=== PATIENT | female | born 1935 | race Caucasian/White ===

== ENCOUNTER → 2024-07-08 | Outpatient (CLI) | payer MEDICARE, BC ==
[2024-07-08 14:13] LABS: Partial Thromboplastin Time 23.6 sec (22.0-30.0); Prothrombin Time 10.7 sec (10.0-12.5)
[2024-07-08 19:29] LABS: HCT 38.7 % (37.2-46.3); HGB 12.2 g/dL (12.0-15.0); MCH 30.5 pg (27.0-32.0); MCHC 31.5 g/dL (32.0-37.0); MCV 96.8 FL (80.0-97.0); Mean Platelet Volume 11.1 FL (9.5-12.2); NRBC Per 100 WBC 0 X 10*3/uL (0.00-0.01); Platelet Count 235 X 10*3/uL (140-440); RDW 14.6 % (11.5-14.5); WBC 10.76 X 10*3/uL (4.50-10.00)
[2024-07-08 21:07] LABS: ALT 29 U/L (8-44); AST 33 U/L (13-35); Albumin 4.2 g/dL (3.8-4.9); Albumin/Globulin Ratio 1.75 Ratio (1.60-3.17); Alkaline Phosphatase 110 U/L (41-126); BUN/Creat Ratio 23.18 Ratio (12.00-20.00); Blood Urea Nitrogen 25.5 mg/dL (9.0-27.0); Calcium 9.3 mg/dL (8.7-10.3); Carbon Dioxide 24.4 mmol/L (21.6-31.8); Chloride 104 mmol/L (96-109); Globulin 2.4 g/dL (1.6-3.3); Glucose 86 mg/dL (70-110); Potassium 4.7 mmol/L (3.5-5.5); Sodium 139 mmol/L (135-145); Total Bilirubin 0.4 mg/dL (0.3-1.2); Total Protein 6.6 g/dL (6.2-8.2)
== END | disposition home or self-care (01) ==
LOC: LABPAT 12:30
PROVIDERS: ATTEND Orthopaedic Surgery
DX: Z01.818 Encounter for other preprocedural examination (principal); Z22.322 Carrier or suspected carrier of Methicillin resistant Staphylococcus aureus; M17.12 Unilateral primary osteoarthritis, left knee
CPT/HCPCS: 36415; 80053; 85027; 85610; 85730; 87070

== ENCOUNTER 2024-07-29 05:34 | Inpatient (IN) | payer MEDICARE, BC ==
[~2024-07-29 05:34] MED LIST: TRANEXAMIC 1,000 MG/100ML-NACL 1,000 MG in SALINE 1 100ML.BAG IVPB PRN
[2024-07-29] MEDS ORDERED: LIDOCAINE 1% (10MG/ML) FOR IV START INTRADERMA PRN (05:41)
[2024-07-29] MEDS: IV FLUID CONTINUATION 1,000 ML IV ONE ×2 (05:56→10:27)
[2024-07-29] MEDS: GABAPENTIN 300 MG CAP PO PRN (06:22)
[2024-07-29] MEDS: ACETAMINOPHEN TAB 500 MG TAB PO PRN (06:22)
[2024-07-29] MEDS: ONDANSETRON 4 MG/2 ML VIAL IVP ONE (06:22)
[2024-07-29] MEDS: DEXAMETHASONE SOD PHOSPHATE 4 MG/ML 1 ML VIAL IV ONE (06:23)
[2024-07-29] MEDS: LACTATED RINGERS 1,000 ML IV SCH (06:24)
[2024-07-29] MEDS: MIDAZOLAM 2 MG/2 ML VIAL IV ONE (06:38)
[2024-07-29] MEDS ORDERED: SODIUM CHLORIDE 0.9% (PF) 10 ML VIAL ONE (06:55)
[2024-07-29] MEDS ORDERED: MIDAZOLAM 2 MG/2 ML VIAL ONE (06:55)
[2024-07-29] MEDS ORDERED: fentaNYL (PF) 50 MCG/ML 2 ML AMP ONE (06:55)
[2024-07-29] MEDS ORDERED: ROPIVACAINE 5 MG/ML 30 ML VIAL ONE (06:55)
[2024-07-29] MEDS ORDERED: DEXAMETHASONE SOD PHOSPHATE 4 MG/ML 1 ML VIAL ONE (06:55)
[2024-07-29] MEDS ORDERED: TRANEXAMIC 1,000 MG/100ML-NACL PREMIX BAG ONE (06:55)
[2024-07-29] MEDS ORDERED: diphenhydrAMINE 50 MG/ML 1 ML VIAL ONE (06:55)
[2024-07-29] MEDS: ceFAZolin 1,000 MG in SODIUM CHLORIDE 0.9% 1,000 ML IRRIGATION ONE (07:26)
--- NOTE | 2024-07-29 07:38 | P.ANPRN ---
Procedure Note - Anesthesia - Nerve Block Performed Right Adductor Canal Infusion Time Out Performed: Yes (0637) Date of Procedure: 07/29/24 Procedure Start Time: 06:40 Procedure Stop Time: 06:52 Location of Patient: PreOp Indication: Acute Post-Operative Pain, Requested by Surgeon Sedation Type: Sedate with meaningful contact maintained Preparation: Sterile Prep, Sterile Dressing Position: Supine Catheter: Indwelling Needle Types: Pajunk Needle Gauge: 18 Ultrasound used to visualize needle placement: Yes Ultrasound used to observe medication spread: Yes Injectate: 0.5% Ropivacaine (see comment for volume) (20 mL of block solution containing 10 mL of 0.5% ropivacaine mixed with 10 mL of preservative-free normal saline.) Blood Aspirated: No Pain Paresthesia on Injection Noted: No Resistance on Injection: Normal Image Stored and Saved: Yes Events: Uneventful and Well Tolerated
--- NOTE | 2024-07-29 07:39 | P.ANPRN ---
Procedure Note - Anesthesia - Nerve Block Performed Right iPack Single Time Out Performed: Yes (0637) Date of Procedure: 07/29/24 Procedure Start Time: 06:40 Procedure Stop Time: 06:52 Location of Patient: PreOp Indication: Acute Post-Operative Pain, Requested by Surgeon Sedation Type: Sedate with meaningful contact maintained Preparation: Sterile Prep Position: Supine Catheter: None Needle Types: Pajunk Needle Gauge: 21 Ultrasound used to visualize needle placement: Yes Ultrasound used to observe medication spread: Yes Injectate: 0.5% Ropivacaine (see comment for volume) (21 mL of block solution containing 10 mL of 0.5% ropivacaine mixed with 10 mL of preservative-free normal saline, and 4 mg of dexamethasone) Blood Aspirated: No Pain Paresthesia on Injection Noted: No Resistance on Injection: Normal Image Stored and Saved: Yes Events: Uneventful and Well Tolerated
--- NOTE | 2024-07-29 08:11 | P.OP ---
Date of Procedure: 07/29/24 Preoperative Diagnosis: Severe osteoarthritis, right knee Postoperative Diagnosis: Severe osteoarthritis, right knee Procedure(s) Performed: Right total knee arthroplasty Implants: [employer] Journey II CR Oxinium cruciate retaining femoral component size 4, right [employer] Journey nonporous tibial baseplate size 3, right [employer] Journey II, XLPE Deep Dished articular insert, size 10 mm, Size 3-4, right [employer] Journey Paige II resurfacing patellar component, oval, 29 mm All components were cemented using Palacos R bone cement The articulation is Oxinium on polyethylene Anesthesia: spinal Surgeon: Jesus Orr Rotary Engraver #1: Rahel Penn Estimated Blood Loss (ml): 50 Pathology: none sent Condition: stable Disposition: PACU Indications for Procedure: The patient's knee is end-stage, and conservative management has failed. The operation of knee replacement has been discussed at length in the office, as well as potential risks and complications. These are inclusive of, but not limited to: Infection, bleeding, scarring, discomfort, stiffness, blood vessel and nerve damage, need for further surgery, failure to relieve symptoms, persistence, recurrence, or worsening of problems, loosening, dislocation, wear, blood clot, pulmonary embolism, , gait dysfunction, stiffness, and other risks as discussed in the office. Patient elects to proceed and the consent form has been signed. Operative Findings: The operative findings are consistent with severe osteoarthritis of the right knee Description of Procedure: The patient was seen in the preoperative area, the consent was reviewed and the operative site was marked with a skin marker. The patient verified the procedure and the operative site. An adductor canal pain catheter and an iPACK block were placed by anesthesia in the preoperative area. The patient was then brought to the operating room and positioned on the operating room table in the supine position. Preoperative antibiotics and a gram of tranexamic acid were given intravenously. A spinal anesthetic was administered by the anesthesia department. Care was taken to make sure that all pressure points were adequately padded. A tourniquet was placed on the upper thigh and the lower extremity was prepped with ChloraPrep and draped in usual sterile fashion. A universal time-out was then performed which confirmed the patient's name, surgical site, ALLERGIES, and consent. The lower extremity was then exsanguinated and tourniquet was inflated to 250 mmHg. A standard anterior midline approach to the knee was performed. The skin and subcutaneous tissue were sharply dissected down to the patellar tendon. A medial parapatellar arthrotomy was then performed. The knee was then extended, the patellar was everted, and the knee was flexed. The infra-patellar fat pad was removed in order to enhance exposure. The anterior horns of both menisci were excised, and a release was performed to the posterior medial aspect of the knee. On gross visual inspection, there was complete loss of articular cartilage in the medial and patellofemoral joint spaces. There was also significant cartilage damage in the lateral compartment. There were multiple periarticular osteophytes globally about the knee which were then removed with a Ronguer. The femoral canal was then opened with the 9.5 mm intramedullary drill. The 8 mm intramedullary franca was then inserted into the femoral canal with the distal femoral cutting guide set for 5 of valgus. The distal femoral cutting block was then pinned in place. The intramedullary franca was then removed, and the distal femur was then cut. The cutting block was then removed and the cut was checked for symmetry. The resected bone was then measured to confirm the appropriate distal femoral resection. Next, the sizing guide was then placed and set for 3 external rotation based off of the epicondylar axis and Hallwood's line. Pins were then placed and the drill holes, and the femur was sized with the sizing stylus. The pins were then removed, and the sizing guide was then removed. The spikes of the appropriate size femoral block was then placed into the predrilled holes, and malleted into place. Two 45 mm pins were then placed into the fixation holes on the cutting block. An oxana wing was then used to ensure there would be no notching with the anterior cut. The anterior condyles were cut without notching. The anterior chord cut was then performed, followed by the posterior cut, posterior chamfer cut, and the anterio r chamfer cut. The collateral ligaments were protected during the entire process. The cutting block was then removed. Any remaining bone and osteophytes were removed from the femur with a Ronguer. Attention was then directed to the tibia. The remaining ACL was removed with a Ronguer, and the tibia was then gently subluxed forward with a large bent knee retractor. Any remaining menisci were excised. The posterior lateral corner was cauterized in order to coagulate the lateral geniculate artery. The extra medullary tibial cutting guide was then placed, set for the appropriate rotation, slope, and depth of resection. The proximal tibia cutting guide was then pinned in place. Proximal tibia was then cut and sized. A curved osteotome was then used to remove any posterior osteophytes from the distal femur. The femoral trial was placed. A narrow saw blade was then used to remove the anterior intracondylar femoral bone. The CR notch trial was then placed. The tibial trial was placed with the appropriate-sized insert. The knee was able to fully extend and flex to 130 and was stable throughout all range of motion. The knee was then extended and the patella was everted. Patella was then measured, and then using an osteotomy guide, the patella was cut at the appropriate level. The patellar component was sized. The patellar drill guide was placed and the patella was drilled. The patella trial was then placed. The knee was then taken through range of motion with the patella trial and the patella tracked normally using the no thumbs technique. The patella trial was then removed. The knee was then flexed and lug holes were drilled through the femoral trial and the femoral trial was then removed. The tibial was then re- exposed, and the tibial broach guide was then pinned in place after it was set for the appropriate rotation to allow for the most coverage without overhang. The tibia was then reamed and broached. The femoral canal was plugged with autologous bone. The cut surfaces of bone were then irrigated with pulsatile lavage. The knee was also irrigated with Irrisept solution. The components were then opened, the cement was mixed. Cement was placed on the backside of the femoral, tibial, and patellar components. Cement was then applied to the tibial surface and pressurized into the surface using finger pressurization technique. The tibial component was then applied and excess cement was removed after it was impacted securely noted to be flush with the cut surface. In similar fashion, the cement was applied to the cut femoral surface, pressurized and using finger pressurization the component was impacted in place. Excess cement was removed. The polyethylene spacer was then implanted and locked into position. Patellar component was then applied in a similar technique and the patellar clamp was used to hold patella in place while the cement hardened. The knee was held in full extension while the cement hardened. Once the cement had fully hardened, the knee was reinspected. Any other cement extrusion was removed the final range of motion testing showed range of motion from 0-130 with excellent stability, both medial and laterally and appropriate alignment of the leg. Patella tracked normally. After the cemented hardened, the tourniquet was released and hemostasis was obtained. A second gram of transexamic acid was given intravenously. The knee was again irrigated. The knee was again taken through range of motion and found to be stable throughout all range of motion of 0-130, and the patella tracked normally. The fascia was then closed with 0 Vicryl followed by #2 strata fix suture. The subcutaneous tissue was closed with 3-0 Vicryl and 3-0 monocryl. Exofin glue was used for the skin and placed with the knee in flexion. After the glue had dried, and Optafoam silver impregnated dressing was applied. A lightly compressive dressing was applied using web roll and Jevon wrap. Patient was then transferred to the stretcher and taken to recovery room in stable condition. Sponge and needle counts were correct. The hair assistant MARISA Bailon was required due the complexity surgery and the need for a skilled corporate law assistant. She assisted in positioning, draping, retraction, and closure of the wound.
[2024-07-29] MEDS ORDERED: NALOXONE 0.4 MG/ML 1 ML VIAL IV PRN (08:49)
[2024-07-29] MEDS ORDERED: HYDROmorphone 0.5 MG/0.5 ML SYRINGE IVP PRN ×2 (08:49)
[2024-07-29] MEDS ORDERED: bisacodyL 10 MG SUPP RECTAL PRN (08:49)
[2024-07-29] MEDS ORDERED: MAGNESIUM HYDROXIDE 2,400 MG/30 ML CUP PO PRN (08:49)
[2024-07-29] MEDS ORDERED: NA PHOS,M-B/NA PHOS,DI-BA 133 ML ENEMA RECTAL PRN (08:49)
--- NOTE | 2024-07-29 09:18 | XR ---
EXAMINATION TYPE: XR knee limited RT DATE OF EXAM: 07/29/2024 9:11 AM COMPARISON: None. CLINICAL INDICATION: Female, 89 years old with history of Evaluation for Postop abnormality and align ment, pain TECHNIQUE: 2 view(s) obtained. FINDINGS: There is placement of tibial femoral component knee prosthesis. No acute fractures are evident. An oc cult fracture of the medial metaphysis of the tibia is not excluded. This is nondisplaced. Postsurgic al soft tissue changes are present. IMPRESSION: 1. Occult Fracture the medial metaphyseal tibia is not excluded. This is nondisplaced. [facility], , 07/29/2024 9:16 AM
[2024-07-29] MEDS: HYDROmorphone 0.5 MG/0.5 ML SYRINGE IVP PRN ×2 (09:43→16:37)
[2024-07-29] MEDS: SODIUM CHLORIDE 0.9% 1,000 ML IV SCH (17:38)
[2024-07-29] MEDS: HYDROcodone/APAP 7.5-325MG 1 EACH TAB PO PRN (17:49)
[2024-07-29] MEDS: droPERidol 5 MG/2 ML VIAL IVP ONE (19:54)
[2024-07-29] MEDS: SENNOSIDES-DOCUSATE SODIUM 1 EACH TAB PO SCH (19:58)
[2024-07-29] MEDS: ATORVASTATIN 10 MG TAB PO SCH (21:32)
[2024-07-29] MEDS: ZOLPIDEM 5 MG TAB PO PRN (21:32)
[2024-07-30] MEDS: LEVOTHYROXINE 25 MCG TAB PO SCH (06:43)
[2024-07-30] MEDS: PANTOPRAZOLE 40 MG TABLET PO SCH (06:46)
[2024-07-30] MEDS: METOPROLOL SUCCINATE (ER) 50 MG TAB.ER.24H PO SCH (08:21)
[2024-07-30] MEDS: CLOPIDOGREL 75 MG TAB PO SCH (08:21)
[2024-07-30] MEDS: APIXABAN 2.5 MG TABLET PO SCH (08:21)
[2024-07-30] MEDS: ONDANSETRON 4 MG/2 ML VIAL IVP PRN (09:01)
[2024-07-30 09:07] LABS: HCT 31.8 % (37.2-46.3); MCH 30.6 pg (27.0-32.0); MCHC 31.4 g/dL (32.0-37.0); MCV 97.2 FL (80.0-97.0); Mean Platelet Volume 11.2 FL (9.5-12.2); NRBC Per 100 WBC 0 X 10*3/uL (0.00-0.01); Platelet Count 190 X 10*3/uL (140-440); RBC 3.27 X 10*6/uL (4.10-5.20); RDW 14.6 % (11.5-14.5); WBC 13.04 X 10*3/uL (4.50-10.00)
--- NOTE | 2024-07-30 09:39 | P.PN ---
Progress Note - Text Progress Note Date: 07/30/24 patient was seen and evaluated at bedside. Status post postoperative day 1 for right total knee arthroplasty patient had adductor canal catheter for postop pain control. Patient rated pain at rest 4-5 out of 10 in severity. Patient describes pain is aching, throbbing type on the sides of the knee and back of the knee. Patient started walking with support. With activity patient pain levels are 6-7 out of 10 in severity. With the help of oral pain medications pain levels are tolerable. Patient denied any weakness/ numbness in lower extremities. patient denied any fever, pain over the catheter site. Physical exam: Patient vital signs stable Patient is alert awake oriented 3 responding to all questions appropriately Examination of the catheter site showed dressing intact, no leaking fluid around the catheter, no redness, no tenderness over the catheter insertion area. plan: status post postoperative day 1 for right total knee arthroplasty with adductor canal catheter for pain control. Patient was discussed to continue the medication at the rate of 8 mL per hour until the pump is completely empty and instructed the patient how to discontinue the catheter.
[2024-07-30 09:43] LABS: Basophils # (A) 0.02 X 10*3/uL (0.00-0.10); Basophils % (A) 0.2 %; Eosinophils # (A) 0.01 X 10*3/uL (0.04-0.35); Eosinophils % (A) 0.1 %; Lymphocytes # (A) 1.04 X 10*3/uL (0.90-5.00); Monocytes # (A) 1.54 X 10*3/uL (0.20-1.00); Monocytes % (A) 11.8 %; Neutrophils # (A) 10.37 X 10*3/uL (1.80-7.70); Neutrophils % (A) 79.4 %
--- NOTE | 2024-07-30 10:52 | P.PN ---
Subjective Progress Note Date: 07/30/24 Principal diagnosis: Primary osteoarthritis right knee. Status post total right knee arthroplasty. This is an 89-year-old female who is postop day #1 status post total right knee arthroplasty. She is complaining of some low back and groin pain. She is having some posterior knee pain as well. Her daughter is present at bedside. She has had no nausea, vomiting or diarrhea. She has been afebrile. Objective - Vital Signs Vital signs: Vital Signs Temp 97.7 F 07/30/24 07:03 Pulse 63 07/30/24 07:03 Resp 16 07/30/24 07:03 BP 129/72 07/30/24 07:03 Pulse Ox 98 07/30/24 07:03 FiO2 Intake & Output 07/29/24 07/30/24 07/30/24 18:59 06:59 18:59 Intake Total 1751 Output Total 50 Balance 1701 Weight 68.9 kg Intake: IV 1751 Output: Estimated Blood Loss 50 Other: Voiding Method Toilet Toilet # Voids 1 3 1 - Exam This is a pleasant 89-year-old female in no acute distress. She is alert and oriented x 3. Exam of the right lower extremity reveals that her dressing is clean, dry and intact. She has difficulty with straight leg raise. She has full foot and ankle motion without difficulty or pain. There is some mild calf tenderness with palpation. Homans is negative. There is minimal calf swelling and no erythema. Neurovascular status to the lower extremity is intact. - Labs CBC & Chem 7: 07/30/24 03:28 Labs: Abnormal Lab Results - Last 24 Hours (Table) 07/30/24 Range/Units 03:28 WBC 13.04 H (4.50-10.00) X 10*3/uL RBC 3.27 L (4.10-5.20) X 10*6/uL Hgb 10.0 L (12.0-15.0) g/dL Hct 31.8 L (37.2-46.3) % MCV 97.2 H (80.0-97.0) FL MCHC 31.4 L (32.0-37.0) g/dL RDW 14.6 H (11.5-14.5) % Immature Gran # 0.06 H (0.00-0.04) X 10*3/uL Neutrophils # 10.37 H (1.80-7.70) X 10*3/uL Monocytes # 1.54 H (0.20-1.00) X 10*3/uL Eosinophils # 0.01 L (0.04-0.35) X 10*3/uL Assessment and Plan (1) Primary localized osteoarthritis of right knee Current Visit: Yes Status: Acute Code(s): M17.11 - UNILATERAL PRIMARY OSTEOARTHRITIS, RIGHT KNEE SNOMED Code(s): 063370967315632 (2) Status post total right knee replacement Current Visit: Yes Status: Acute Code(s): Z96.651 - PRESENCE OF RIGHT ARTIFICIAL KNEE JOINT SNOMED Code(s): 0218406516212 Plan: The clinical findings are discussed with the patient and her daughter. Continue with pain control. Continue with physical therapy. She is encouraged to perform ankle pumps while in bed. She is planning discharge to inpatient rehab likely Sunday.
--- NOTE | 2024-07-30 15:00 | P.CONS ---
History of Present Illness - Reason for Consult Consult date: 07/30/24 - History of Present Illness History of present illness: 89-year-old female with past medical history significant for hypertension, hyperlipidemia, hypothyroidism, history of mitral valve repair in 2007 who underwent right total knee arthroplasty on 07/29/2024. Internal medicine consulted for medical management. Patient complaining of right knee pain, continue pain medication per orthopedic. Patient reported worsening pain with ambulation, controlled with pain medications. Patient denied any fever, chills, productive cough, shortness of breath, chest pain, palpitation, nausea vomiting diarrhea constipation abdominal pain dysuria urgency frequency weakness or numbness of extremities. Patient is afebrile, heart rate 60, respiratory rate 16, blood pressure 140/68, saturating 99% on room air. WBCs 13.4, hemoglobin 10.0, platelet 190. Assessment and plan: Status post right TKA: Management per orthopedics Pain control and DVT prophylaxis per primary Bowel/bladder protocol PT/OT consult Hypertension: Metoprolol lisinopril Hyperlipidemia: Statin Mitral valve repair: Hypothyroidism Anxiety Continue home meds DVT prophylaxis On Eliquis 2.5 bid Monitor vital signs and labs Labs and medication were reviewed. Continue same treatment. Further recommendations as per clinical course of the patient PHYSICAL EXAMINATION: GENERAL: The patient is A&O x3, NAD HEENT: EOMI, Sclerae anicteric, Moist Mucous membranes Neck: Supple, Non tender, No JVD PULMONARY: Equal breath souds B/L, No wheezing, No crackles. CARDIOVASCULAR: S1, S2 present. No murmurs, rubs, or gallops. ABDOMEN: Soft, nontender, nondistended, normoactive bowel sounds. No guarding or rebound tenderness. MUSCULOSKELETAL: No edema, No cyanosis. No clubbing. Normal ROM. Intact peripheral pulses. Right kneedressing intact NEUROLOGICAL: CN 2-12 grossly intact. No FND REVIEW OF SYSTEMS: CONSTITUTIONAL: No fever, no malaise, no fatigue. HEENT: No recent visual problems or hearing problems. Denied any sore throat. CARDIOVASCULAR: No chest pain, orthopnea, PND, no palpitations, no syncope. PULMONARY: No shortness of breath, no cough, no hemoptysis. GASTROINTESTINAL: No diarrhea, no nausea, no vomiting, no abdominal pain. NEUROLOGICAL: No headaches, no weakness, no numbness. HEMATOLOGICAL: Denies any bleeding or petechiae. GENITOURINARY: Denies any burning micturition, frequency, or urgency. MUSCULOSKELETAL/RHEUMATOLOGICAL: Right knee pain ENDOCRINE: Denies any polyuria or polydipsia. The rest of the 14-point review of systems is negative. Dictation was produced using [employer] software. please excuse any grammatical, word or spelling errors. Past Medical History Past Medical History: Cancer, GERD/Reflux, Hyperlipidemia, Thyroid Disorder Additional Past Medical History / Comment(s): mitral valve repair,skin cancer History of Any Multi-Drug Resistant Organisms: None Reported Past Surgical History: Orthopedic Surgery, Tonsillectomy Additional Past Surgical History / Comment(s): mitral valve repaired,multiple nasal poylps removed,carlos alberto cataracts removed, thumb repair, trigger finger surgeries Past Anesthesia/Blood Transfusion Reactions: No Reported Reaction Additional Past Anesthesia/Blood Transfusion Reaction / Comm: no blood transfusion hx Past Psychological History: Depression Smoking Status: Never smoker Past Alcohol Use History: Occasional Past Drug Use History: None Reported - Past Family History Mother Family Medical History: Cancer Additional Family Medical History / Comment(s): cervical cancer Son(s) Family Medical History: Deep Vein Thrombosis (DVT) Medications and Allergies Home Medications Medication Instructions Recorded Confirmed Type Acetaminophen Tab [Tylenol Tab] 500 mg PO Q6H PRN 07/24/24 07/29/24 History Baclofen 10 mg PO QID PRN 07/24/24 07/29/24 History Beclomethasone Dipropionate [Qvar 1 puff INHALATION DIRECTED 07/24/24 07/29/24 History 40 mcg Redihaler] Clopidogrel [Plavix] 75 mg PO DAILY 07/24/24 07/29/24 History Co Q 10 (Unk) 1 tab PO DAILY 07/24/24 07/29/24 History Fexofenadine/Pseudoephedrine 1 tab PO BID PRN 07/24/24 07/29/24 History [Kusum-D 12 Hour Tablet] Krill/Om-3/Dha/Epa/Phospho/Ast 1 each PO DAILY 07/24/24 07/29/24 History [Krill Oil 600 mg Softgel] Levothyroxine Sodium [Synthroid] 25 mcg PO DAILY 07/24/24 07/29/24 History Magnesium ( Unk) 1 tab PO DAILY 07/24/24 07/29/24 History Metoprolol Succinate (ER) [Toprol 50 mg PO DAILY 07/24/24 07/29/24 History Xl] Omeprazole 40 mg PO DAILY 07/24/24 07/29/24 History Simvastatin 10 mg PO DAILY 07/24/24 07/29/24 History Tumeric 1 tab PO DAILY 07/24/24 07/29/24 History Zolpidem Tartrate [Ambien] 10 mg PO HS PRN 07/24/24 07/29/24 History diphenhydrAMINE [Benadryl] 50 mg PO DAILY PRN 07/24/24 07/29/24 History levalbuterol HCL [levalbuterol HCL 1.25 mg INHALATION DIRECTED 07/24/24 07/29/24 History Concentrate] lisinopriL [Prinivil] 10 mg PO DAILY 07/24/24 07/29/24 History traMADol HCl [Ultram] 50 mg PO Q6HR PRN 07/24/24 07/29/24 History Apixaban [Eliquis] 2.5 mg PO BID 30 Days #60 tab 07/29/24 Rx HYDROcodone/APAP 7.5-325MG [[place] 1 tab PO Q4-6H PRN #30 tab 07/29/24 Rx 7.5-325] Sennosides [Senokot] 2 tab PO DAILY PRN #60 tablet 07/29/24 Rx Allergies Allergy/AdvReac Type Severity Reaction Status Date / Time aspirin Allergy Severe Anaphylaxis Verified 07/29/24 05:52 NSAIDS (Non-Steroidal Allergy Severe Anaphylaxis Verified 07/29/24 05:52 Anti-Inflamma Physical Exam Vitals: Vital Signs Temp Pulse Resp BP Pulse Ox 07/30/24 07:03 97.7 F 63 16 129/72 98 07/30/24 01:03 98.5 F 70 17 96/54 97 07/29/24 19:08 98.5 F 63 17 127/56 95 07/29/24 15:00 75 98 Intake and Output 07/29/24 07/30/24 07/30/24 22:59 06:59 14:59 Other: Voiding Method Toilet Toilet # Voids 1 3 1 Results CBC & Chem 7: 07/30/24 03:28 Labs: Abnormal Lab Results - Last 24 Hours (Table) 07/30/24 Range/Units 03:28 WBC 13.04 H (4.50-10.00) X 10*3/uL RBC 3.27 L (4.10-5.20) X 10*6/uL Hgb 10.0 L (12.0-15.0) g/dL Hct 31.8 L (37.2-46.3) % MCV 97.2 H (80.0-97.0) FL MCHC 31.4 L (32.0-37.0) g/dL RDW 14.6 H (11.5-14.5) % Immature Gran # 0.06 H (0.00-0.04) X 10*3/uL Neutrophils # 10.37 H (1.80-7.70) X 10*3/uL Monocytes # 1.54 H (0.20-1.00) X 10*3/uL Eosinophils # 0.01 L (0.04-0.35) X 10*3/uL
[2024-07-30] MEDS ORDERED: ACETAMINOPHEN TAB 500 MG TAB PO PRN (15:01)
[2024-07-30] MEDS: lisinopriL 10 MG TAB PO SCH (16:11)
[2024-07-30] MEDS ORDERED: ALBUTEROL NEBULIZED 2.5 MG/3 ML INHALATION PRN (20:00)
[2024-07-30] MEDS: FLUTICASONE 44 MCG INHALER INHALATION SCH (22:01)
[2024-07-31] MEDS: BACLOFEN 10 MG TAB PO PRN (03:33)
--- NOTE | 2024-07-31 08:22 | P.PN ---
Subjective Progress Note Date: 07/31/24 Principal diagnosis: Primary osteoarthritis right knee. Status post total right knee arthroplasty. This is an 89-year-old female who is postop day #1 status post total right knee arthroplasty. She is complaining of some low back and groin pain. She is having some posterior knee pain as well. Her daughter is present at bedside. She has had no nausea, vomiting or diarrhea. She has been afebrile. She continues to complain of some calf pain. Objective - Vital Signs Vital signs: Vital Signs Temp 99.0 F 07/31/24 02:40 Pulse 74 07/31/24 02:40 Resp 20 07/31/24 02:40 BP 134/62 07/31/24 02:40 Pulse Ox 94 L 07/31/24 02:40 FiO2 Intake & Output 07/30/24 07/31/24 07/31/24 18:59 06:59 18:59 Intake Total 480 Balance 480 Intake: Oral 480 Other: Voiding Method Toilet Toilet # Voids 1 3 - Exam This is a pleasant 89-year-old female in no acute distress. She is alert and oriented x 3. Exam of the right lower extremity reveals that her dressing is clean, dry and intact. She has difficulty with straight leg raise. She has full foot and ankle motion with some pain. There is some mild calf tenderness with palpation. Homans is questionable. There is minimal calf swelling and no erythema. Neurovascular status to the lower extremity is intact. - Labs CBC & Chem 7: 07/30/24 03:28 Labs: Abnormal Lab Results - Last 24 Hours (Table) 07/30/24 Range/Units 03:28 WBC 13.04 H (4.50-10.00) X 10*3/uL RBC 3.27 L (4.10-5.20) X 10*6/uL Hgb 10.0 L (12.0-15.0) g/dL Hct 31.8 L (37.2-46.3) % MCV 97.2 H (80.0-97.0) FL MCHC 31.4 L (32.0-37.0) g/dL RDW 14.6 H (11.5-14.5) % Immature Gran # 0.06 H (0.00-0.04) X 10*3/uL Neutrophils # 10.37 H (1.80-7.70) X 10*3/uL Monocytes # 1.54 H (0.20-1.00) X 10*3/uL Eosinophils # 0.01 L (0.04-0.35) X 10*3/uL Assessment and Plan (1) Primary localized osteoarthritis of right knee Current Visit: Yes Status: Acute Code(s): M17.11 - UNILATERAL PRIMARY OSTEOARTHRITIS, RIGHT KNEE SNOMED Code(s): 282390949533536 (2) Status post total right knee replacement Current Visit: Yes Status: Acute Code(s): Z96.651 - PRESENCE OF RIGHT ARTIFICIAL KNEE JOINT SNOMED Code(s): 2386104276842 Plan: The clinical findings are discussed with the patient. Continue with pain control. Venous Doppler ordered for today. Continue with physical therapy. She is encouraged to perform ankle pumps while in bed. She is planning discharge to inpatient rehab likely Sunday.
[2024-07-31] MEDS ORDERED: CO Q PO SCH (09:00)
[2024-07-31 09:14] LABS: Basophils # (A) 0.03 X 10*3/uL (0.00-0.10); Basophils % (A) 0.2 %; Eosinophils # (A) 0.17 X 10*3/uL (0.04-0.35); Eosinophils % (A) 1.4 %; HCT 31.7 % (37.2-46.3); Lymphocytes # (A) 0.93 X 10*3/uL (0.90-5.00); Lymphocytes % (A) 7.6 %; MCHC 31.5 g/dL (32.0-37.0); MCV 98.1 FL (80.0-97.0); Mean Platelet Volume 11.2 FL (9.5-12.2); Monocytes # (A) 1.27 X 10*3/uL (0.20-1.00); Monocytes % (A) 10.3 %; NRBC Per 100 WBC 0 X 10*3/uL (0.00-0.01); Neutrophils # (A) 9.84 X 10*3/uL (1.80-7.70); Neutrophils % (A) 80.1 %; Platelet Count 170 X 10*3/uL (140-440); RBC 3.23 X 10*6/uL (4.10-5.20); RDW 14.8 % (11.5-14.5); WBC 12.29 X 10*3/uL (4.50-10.00)
[2024-07-31 09:15] LABS: BUN/Creat Ratio 15.67 Ratio (12.00-20.00); Blood Urea Nitrogen 14.1 mg/dL (9.0-27.0); Calcium 8.5 mg/dL (8.7-10.3); Carbon Dioxide 24.6 mmol/L (21.6-31.8); Chloride 100 mmol/L (96-109); Glucose 125 mg/dL (70-110); Potassium 4.1 mmol/L (3.5-5.5); Sodium 135 mmol/L (135-145)
--- NOTE | 2024-07-31 10:41 | US ---
EXAMINATION TYPE: US venous doppler duplex LE RT DATE OF EXAM: 07/31/2024 10:14 AM COMPARISON: NONE CLINICAL INDICATION: Female, 89 years old with history of R/O DVT, post op TKA right knee; , Pain TECHNIQUE: The lower extremity deep venous system is examined utilizing real time linear array sonog nahid with graded compression, color doppler sonography, and spectral doppler. SIDE PERFORMED: Right FINDINGS: VESSELS IMAGED: Common Femoral Vein Deep Femoral Vein Greater Saphenous Vein * Femoral Vein Popliteal Vein Small Saphenous Vein * Proximal Calf Veins (* superficial vessels) The deep venous system of the right lower extremity from the common femoral vein to the proximal calf veins is patent and compressible with augmentable flow with normal waveforms. IMPRESSION: No evidence of right lower extremity DVT from the common femoral vein to the proximal calf veins limited scan due to pt having med port placed in rt upper thigh [facility], Workstation: ANNA 07/31/2024 10:39 AM
--- NOTE | 2024-07-31 14:56 | P.PN ---
Subjective Progress Note Date: 07/31/24 Interval History: History of present illness: 89-year-old female with past medical history significant for hypertension, hyperlipidemia, hypothyroidism, history of mitral valve repair in 2007 who underwent right total knee arthroplasty on 07/29/2024. Internal medicine consulted for medical management. Patient complaining of right knee pain, continue pain medication per orthopedic. Patient reported worsening pain with ambulation, controlled with pain medications. Patient denied any fever, chills, productive cough, shortness of breath, chest pain, palpitation, nausea vomiting diarrhea constipation abdominal pain dysuria urgency frequency weakness or numbness of extremities. Patient is afebrile, heart rate 60, respiratory rate 16, blood pressure 140/68, saturating 99% on room air. WBCs 13.4, hemoglobin 10.0, platelet 190. /09/23--patient was seen and examined today. Patient was complaining of right lower extremity pain and swelling, also complained of some low back and groin pain. Ultrasound venous was negative for DVT. Patient on Eliquis 2.5 mg twice daily for DVT prophylaxis. Patient is on Plavix for history of mitral valve repair, has allergy to aspirin. Vital stable. Labs stable, WBCs 12.2, hemoglobin stable 10.0, platelet 170. BMP unremarkable. Assessment and plan: Status post right TKA: Management per orthopedics Pain control and DVT prophylaxis per primary Bowel/bladder protocol PT/OT consult Hypertension: Metoprolol lisinopril Hyperlipidemia: Statin Mitral valve repair: on Plavix Hypothyroidism Anxiety Continue home meds including Plavix DVT prophylaxis On Eliquis 2.5 bid Disposition: PT/OT consult, anticipate subacute rehab. Monitor vital signs and labs Labs and medication were reviewed. Continue same treatment. Further recommendations as per clinical course of the patient PHYSICAL EXAMINATION: GENERAL: The patient is A&O x3, NAD HEENT: EOMI, Sclerae anicteric, Moist Mucous membranes Neck: Supple, Non tender, No JVD PULMONARY: Equal breath souds B/L, No wheezing, No crackles. CARDIOVASCULAR: S1, S2 present. No murmurs, rubs, or gallops. ABDOMEN: Soft, nontender, nondistended, normoactive bowel sounds. No guarding or rebound tenderness. MUSCULOSKELETAL: No edema, No cyanosis. No clubbing. Normal ROM. Intact peripheral pulses. Right kneedressing intact NEUROLOGICAL: CN 2-12 grossly intact. No FND REVIEW OF SYSTEMS: CONSTITUTIONAL: No fever, no malaise, no fatigue. HEENT: No recent visual problems or hearing problems. Denied any sore throat. CARDIOVASCULAR: No chest pain, orthopnea, PND, no palpitations, no syncope. PULMONARY: No shortness of breath, no cough, no hemoptysis. GASTROINTESTINAL: No diarrhea, no nausea, no vomiting, no abdominal pain. NEUROLOGICAL: No headaches, no weakness, no numbness. HEMATOLOGICAL: Denies any bleeding or petechiae. GENITOURINARY: Denies any burning micturition, frequency, or urgency. MUSCULOSKELETAL/RHEUMATOLOGICAL: Right knee pain ENDOCRINE: Denies any polyuria or polydipsia. The rest of the 14-point review of systems is negative. Assessment and plan: DVT prophylaxis: Monitor vital signs and labs Labs and medication were reviewed. Continue same treatment. Further recommendations as per clinical course of the patient PHYSICAL EXAMINATION: GENERAL: The patient is A&O x3, NAD HEENT: EOMI, Sclerae anicteric, Moist Mucous membranes Neck: Supple, Non tender, No JVD PULMONARY: Equal breath souds B/L, No wheezing, No crackles. CARDIOVASCULAR: S1, S2 present. No murmurs, rubs, or gallops. ABDOMEN: Soft, nontender, nondistended, normoactive bowel sounds. No guarding or rebound tenderness. MUSCULOSKELETAL: No edema, No cyanosis. No clubbing. Normal ROM. Intact peripheral pulses. NEUROLOGICAL: CN 2-12 grossly intact. No FND Skin: No Rash REVIEW OF SYSTEMS: CONSTITUTIONAL: No fever or chills. CARDIOVASCULAR: No chest pain, palpitations or syncope. PULMONARY: No shortness of breath, no cough, sore throat. GASTROINTESTINAL: No nausea, vomiting, diarrhea, abdominal pain. : No Dysuria, urgency, frequency. Extremities: No edema. NEUROLOGICAL: No headaches, no weakness, or numbness Dictation was produced using [employer] software. please excuse any grammatical, word or spelling errors. Objective - Vital Signs Vital signs: Vital Signs Temp 98.0 F 07/31/24 07:06 Pulse 74 07/31/24 07:06 Resp 17 07/31/24 07:06 BP 146/86 07/31/24 07:06 Pulse Ox 94 L 07/31/24 07:06 FiO2 Intake & Output 07/30/24 07/31/24 07/31/24 18:59 06:59 18:59 Intake Total 480 Balance 480 Intake: Oral 480 Other: Voiding Method Toilet Toilet # Voids 1 3 - Labs CBC & Chem 7: 07/31/24 04:51 07/31/24 04:51 Labs: Abnormal Lab Results - Last 24 Hours (Table) 07/31/24 07/31/24 Range/Units 04:51 04:51 WBC 12.29 H (4.50-10.00) X 10*3/uL RBC 3.23 L (4.10-5.20) X 10*6/uL Hgb 10.0 L (12.0-15.0) g/dL Hct 31.7 L (37.2-46.3) % MCV 98.1 H (80.0-97.0) FL MCHC 31.5 L (32.0-37.0) g/dL RDW 14.8 H (11.5-14.5) % Immature Gran # 0.05 H (0.00-0.04) X 10*3/uL Neutrophils # 9.84 H (1.80-7.70) X 10*3/uL Monocytes # 1.27 H (0.20-1.00) X 10*3/uL Glucose 125 H (70-110) mg/dL Calcium 8.5 L (8.7-10.3) mg/dL
[2024-08-01 07:46] VITALS: RESP 18; TEMP 98
[2024-08-01 09:07] LABS: Basophils # (A) 0.06 X 10*3/uL (0.00-0.10); Basophils % (A) 0.6 %; Eosinophils # (A) 0.24 X 10*3/uL (0.04-0.35); Eosinophils % (A) 2.2 %; HCT 30.2 % (37.2-46.3); HGB 9.9 g/dL (12.0-15.0); Lymphocytes # (A) 0.72 X 10*3/uL (0.90-5.00); Lymphocytes % (A) 6.6 %; MCH 30.6 pg (27.0-32.0); MCHC 32.8 g/dL (32.0-37.0); MCV 93.2 FL (80.0-97.0); Mean Platelet Volume 10.9 FL (9.5-12.2); Monocytes # (A) 1.02 X 10*3/uL (0.20-1.00); Monocytes % (A) 9.4 %; NRBC Per 100 WBC 0 X 10*3/uL (0.00-0.01); Neutrophils # (A) 8.77 X 10*3/uL (1.80-7.70); Neutrophils % (A) 80.7 %; Platelet Count 177 X 10*3/uL (140-440); RBC 3.24 X 10*6/uL (4.10-5.20); RDW 14.6 % (11.5-14.5); WBC 10.86 X 10*3/uL (4.50-10.00)
--- NOTE | 2024-08-01 10:17 | P.DS ---
Providers Date of admission: 07/29/24 08:49 Expected date of discharge: 08/01/24 Attending physician: Jesus Orr Consults: 07/29/24 08:49 Consult Physician Routine Consulting Provider: Alexia Garcia Consult Reason/Comments: medical management and anticoagulation Do you want consulting provider notified?: Yes Primary care physician: Magnus Stephenson - Discharge Diagnosis(es) (1) Primary localized osteoarthritis of right knee Current Visit: Yes Status: Acute (2) Status post total right knee replacement Current Visit: Yes Status: Acute Hospital Course: This is a 89-year-old female who was last seen with complaint of continued right knee pain. The patient has a known history of degenerative arthritis of the right knee and presents to discuss surgical options. After discussion and consideration the patient elects to proceed with total right knee arthroplasty. The patient is seen preoperatively by her primary care physician and cleared for surgery. The patient is admitted to [facility] for total right knee arthroplasty. The procedures performed without complication or sequelae. Patient is doing well postoperatively. Vital signs are stable at discharge. Labs are stable at discharge. the patient is ambulating well with walker with minimal assistance. The patient is discharged to inpatient rehab on postop day # 3 pending medical clearance. Please see orders and refer to the [facility] rec for accurate list of medications. Patient Condition at Discharge: Stable Plan - Discharge Summary Discharge Rx Participant: Yes New Discharge Prescriptions: New HYDROcodone/APAP 7.5-325MG [Criders 7.5-325] 1 tab PO Q4-6H PRN #30 tab PRN Reason: Pain Apixaban [Eliquis] 2.5 mg PO BID 30 Days #60 tab Sennosides [Senokot] 2 tab PO DAILY PRN #60 tablet PRN Reason: Constipation No Action traMADol HCl [Ultram] 50 mg PO Q6HR PRN PRN Reason: Pain Metoprolol Succinate (ER) [Toprol Xl] 50 mg PO DAILY diphenhydrAMINE [Benadryl] 50 mg PO DAILY PRN PRN Reason: Congestion Zolpidem Tartrate [Ambien] 10 mg PO HS PRN PRN Reason: Insomnia Clopidogrel [Plavix] 75 mg PO DAILY Magnesium ( Unk) 1 tab PO DAILY Co Q 10 (Unk) 1 tab PO DAILY Baclofen 10 mg PO QID PRN PRN Reason: muscle spasms Acetaminophen Tab [Tylenol Tab] 500 mg PO Q6H PRN PRN Reason: Pain lisinopriL [Prinivil] 10 mg PO DAILY Fexofenadine/Pseudoephedrine [Kusum-D 12 Hour Tablet] 1 tab PO BID PRN PRN Reason: Allergy Symptoms Levothyroxine Sodium [Synthroid] 25 mcg PO DAILY levalbuterol HCL [levalbuterol HCL Concentrate] 1.25 mg INHALATION DIRECTED Tumeric 1 tab PO DAILY Simvastatin 10 mg PO DAILY Omeprazole 40 mg PO DAILY Krill/Om-3/Dha/Epa/Phospho/Ast [Krill Oil 600 mg Softgel] 1 each PO DAILY Beclomethasone Dipropionate [Qvar 40 mcg Redihaler] 1 puff INHALATION DIRECTED Discharge Medication List Acetaminophen Tab [Tylenol Tab] 500 mg PO Q6H PRN 07/24/24 [History] Baclofen 10 mg PO QID PRN 07/24/24 [History] Beclomethasone Dipropionate [Qvar 40 mcg Redihaler] 1 puff INHALATION DIRECTED 07/24/24 [History] Clopidogrel [Plavix] 75 mg PO DAILY 07/24/24 [History] Co Q 10 (Unk) 1 tab PO DAILY 07/24/24 [History] Fexofenadine/Pseudoephedrine [Kusum-D 12 Hour Tablet] 1 tab PO BID PRN 07/24 [History] Krill/Om-3/Dha/Epa/Phospho/Ast [Krill Oil 600 mg Softgel] 1 each PO DAILY 07/24/24 [History] Levothyroxine Sodium [Synthroid] 25 mcg PO DAILY 07/24/24 [History] Magnesium ( Unk) 1 tab PO DAILY 07/24/24 [History] Metoprolol Succinate (ER) [Toprol Xl] 50 mg PO DAILY 07/24/24 [History] Omeprazole 40 mg PO DAILY 07/24/24 [History] Simvastatin 10 mg PO DAILY 07/24/24 [History] Tumeric 1 tab PO DAILY 07/24/24 [History] Zolpidem Tartrate [Ambien] 10 mg PO HS PRN 07/24/24 [History] diphenhydrAMINE [Benadryl] 50 mg PO DAILY PRN 07/24/24 [History] levalbuterol HCL [levalbuterol HCL Concentrate] 1.25 mg INHALATION DIRECTED 07/24/24 [History] lisinopriL [Prinivil] 10 mg PO DAILY 07/24/24 [History] traMADol HCl [Ultram] 50 mg PO Q6HR PRN 07/24/24 [History] Apixaban [Eliquis] 2.5 mg PO BID 30 Days #60 tab 07/29/24 [Rx] HYDROcodone/APAP 7.5-325MG [Criders 7.5-325] 1 tab PO Q4-6H PRN #30 tab 07/29/24 [Rx] Sennosides [Senokot] 2 tab PO DAILY PRN #60 tablet 07/29/24 [Rx] Follow up Appointment(s)/Referral(s): Attila Hoover [NON-STAFF] - As Needed Discharge Disposition: TRANSFER TO SNF/ECF
[2024-08-01 14:44] VITALS: BP 102/66; PULSE 75
--- NOTE | 2024-08-01 15:43 | P.PN ---
Subjective Interval History: History of present illness: 89-year-old female with past medical history significant for hypertension, hyperlipidemia, hypothyroidism, history of mitral valve repair in 2007 who underwent right total knee arthroplasty on 07/29/2024. Internal medicine consulted for medical management. Patient complaining of right knee pain, cont inue pain medication per orthopedic. Patient reported worsening pain with ambulation, controlled with pain medications. Patient denied any fever, chills, productive cough, shortness of breath, chest pain, palpitation, nausea vomiting diarrhea constipation abdominal pain dysuria urgency frequency weakness or numbness of extremities. Patient is afebrile, heart rate 60, respiratory rate 16, blood pressure 140/68, saturating 99% on room air. WBCs 13.4, hemoglobin 10.0, platelet 190. 07/31/24--patient was seen and examined today. Patient was complaining of right lower extremity pain and swelling, also complained of some low back and groin pain. Ultrasound venous was negative for DVT. Patient on Eliquis 2.5 mg twice daily for DVT prophylaxis. Patient is on Plavix for history of mitral valve repair, has allergy to aspirin. Vital stable. Labs stable, WBCs 12.2, hemoglobin stable 10.0, platelet 170. BMP unremarkable. 08/01/24--patient was seen and examined today. Complains of right knee pain, worse with ambulation, controlled with pain medications. Vital stable. WBC 10.8, hemoglobin 9.9, platelet 177. Assessment and plan: Status post right TKA: Management per orthopedics Pain control and DVT prophylaxis per primary Bowel/bladder protocol PT/OT consult Hypertension: Metoprolol lisinopril Hyperlipidemia: Statin Mitral valve repair: on Plavix Hypothyroidism Anxiety Continue home meds including Plavix DVT prophylaxis On Eliquis 2.5 bid Disposition: PT/OT consult, anticipate subacute rehab. PHYSICAL EXAMINATION: GENERAL: The patient is A&O x3, NAD HEENT: EOMI, Sclerae anicteric, Moist Mucous membranes Neck: Supple, Non tender, No JVD PULMONARY: Equal breath souds B/L, No wheezing, No crackles. CARDIOVASCULAR: S1, S2 present. No murmurs, rubs, or gallops. ABDOMEN: Soft, nontender, nondistended, normoactive bowel sounds. No guarding or rebound tenderness. MUSCULOSKELETAL: No edema, No cyanosis. No clubbing. Normal ROM. Intact peripher al pulses. Right kneedressing intact NEUROLOGICAL: CN 2-12 grossly intact. No FND REVIEW OF SYSTEMS: CONSTITUTIONAL: No fever, no malaise, no fatigue. HEENT: No recent visual problems or hearing problems. Denied any sore throat. CARDIOVASCULAR: No chest pain, orthopnea, PND, no palpitations, no syncope. PULMONARY: No shortness of breath, no cough, no hemoptysis. GASTROINTESTINAL: No diarrhea, no nausea, no vomiting, no abdominal pain. NEUROLOGICAL: No headaches, no weakness, no numbness. HEMATOLOGICAL: Denies any bleeding or petechiae. GENITOURINARY: Denies any burning micturition, frequency, or urgency. MUSCULOSKELETAL/RHEUMATOLOGICAL: Right knee pain ENDOCRINE: Denies any polyuria or polydipsia. The rest of the 14-point review of systems is negative. Assessment and plan: DVT prophylaxis: Monitor vital signs and labs Labs and medication were reviewed. Continue same treatment. Further recommendations as per clinical course of the patient PHYSICAL EXAMINATION: GENERAL: The patient is A&O x3, NAD HEENT: EOMI, Sclerae anicteric, Moist Mucous membranes Neck: Supple, Non tender, No JVD PULMONARY: Equal breath souds B/L, No wheezing, No crackles. CARDIOVASCULAR: S1, S2 present. No murmurs, rubs, or gallops. ABDOMEN: Soft, nontender, nondistended, normoactive bowel sounds. No guarding or rebound tenderness. MUSCULOSKELETAL: No edema, No cyanosis. No clubbing. Normal ROM. Intact peripheral pulses. NEUROLOGICAL: CN 2-12 grossly intact. No FND Skin: No Rash REVIEW OF SYSTEMS: CONSTITUTIONAL: No fever or chills. CARDIOVASCULAR: No chest pain, palpitations or syncope. PULMONARY: No shortness of breath, no cough, sore throat. GASTROINTESTINAL: No nausea, vomiting, diarrhea, abdominal pain. : No Dysuria, urgency, frequency. Extremities: No edema. NEUROLOGICAL: No headaches, no weakness, or numbness Dictation was produced using [employer] software. please excuse any grammatical, word or spelling errors. Objective - Vital Signs Vital signs: Vital Signs Temp 98.0 F 08/01/24 14:00 Pulse 75 08/01/24 14:00 Resp 18 08/01/24 14:00 BP 102/66 08/01/24 14:00 Pulse Ox 97 08/01/24 14:00 FiO2 Intake & Output 07/31/24 08/01/24 08/01/24 18:59 06:59 18:59 Intake Total 540 Balance 540 Intake: Oral 540 Other: Voiding Method Toilet # Voids 4 - Labs CBC & Chem 7: 08/01/24 05:28 07/31/24 04:51 Labs: Abnormal Lab Results - Last 24 Hours (Table) 08/01/24 Range/Units 05:28 WBC 10.86 H (4.50-10.00) X 10*3/uL RBC 3.24 L (4.10-5.20) X 10*6/uL Hgb 9.9 L (12.0-15.0) g/dL Hct 30.2 L (37.2-46.3) % RDW 14.6 H (11.5-14.5) % Immature Gran # 0.05 H (0.00-0.04) X 10*3/uL Neutrophils # 8.77 H (1.80-7.70) X 10*3/uL Lymphocytes # 0.72 L (0.90-5.00) X 10*3/uL Monocytes # 1.02 H (0.20-1.00) X 10*3/uL
== END 2024-08-01 15:36 | DRG 470 ==
LOC: OR 05:34 → 4SSUR 08:43 → OR 14:33
PROVIDERS: ADMIT Orthopaedic Surgery; ATTEND Orthopaedic Surgery
PROC: 0QUD0JZ Supplement Right Patella with Synthetic Substitute, Open Approach (ICD-10-PCS; 2024-07-29)
PROC: 3E0T3BZ Introduction of Anesthetic Agent into Peripheral Nerves and Plexi, Percutaneous Approach (ICD-10-PCS; 2024-07-29)
PROC: 0SRC0J9 Replacement of Right Knee Joint with Synthetic Substitute, Cemented, Open Approach (ICD-10-PCS; principal; 2024-07-29 07:00)
DX: M17.11 Unilateral primary osteoarthritis, right knee (principal); I10 Essential (primary) hypertension; F41.9 Anxiety disorder, unspecified; E78.5 Hyperlipidemia, unspecified; E03.9 Hypothyroidism, unspecified; Z79.01 Long term (current) use of anticoagulants; M25.761 Osteophyte, right knee; Z79.02 Long term (current) use of antithrombotics/antiplatelets; Z79.890 Hormone replacement therapy; Z79.899 Other long term (current) drug therapy; Z85.828 Personal history of other malignant neoplasm of skin; Z88.6 Allergy status to analgesic agent
CPT/HCPCS: 64448; 64999; 80048; 85025; 94640; 94760

== ENCOUNTER → 2024-11-26 | Outpatient (CLI) | payer MEDICARE, BC ==
--- NOTE | 2024-11-26 16:05 | NM ---
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 Images acquired 3 hours post injection. FINDINGS: Extensive periventricular tracer activity is at the shoulders, sternoclavicular joints, multiple segm ents of the mid thoracic spine (though most intense involving a single mid thoracic vertebral body), upper lumbar spine, lower lumbar spine, right SI joint, base of the thumb on the left, scattered with in the fingers, left knee, bilateral and hindfoot regions. There also appears to be underlying right total knee arthroplasty with increased tracer activity around the prosthesis. IMPRESSION: 1. Extensive degenerative tracer activity throughout both outlined above. 2. Activity is most intense along a single midthoracic vertebral body. This could reflect an acute or subacute vertebral body compression injury. 3. Additional intense activity around the patient's right total knee arthroplasty. Underlying looseni ng is not excluded. [facility], , 11/26/2024 4:03 PM
== END | disposition home or self-care (01) ==
LOC: RADNMMAIN 09:54
PROVIDERS: ATTEND Physical Medicine & Rehabilitation
DX: M41.24 Other idiopathic scoliosis, thoracic region (principal); M54.16 Radiculopathy, lumbar region; M47.814 Spondylosis without myelopathy or radiculopathy, thoracic region; S22.000A Wedge compression fracture of unspecified thoracic vertebra, initial encounter for closed fracture; M51.34 Other intervertebral disc degeneration, thoracic region; M43.16 Spondylolisthesis, lumbar region; Z96.651 Presence of right artificial knee joint
CPT/HCPCS: 78306; A9503